=== PATIENT | male | born 1970 | race Caucasian/White ===

== ENCOUNTER → 2020-07-03 12:52 | Outpatient (CLI) | payer OTHER, SELFPAY ==
--- NOTE | 2020-07-03 13:00 | XR_ITS ---
PROCEDURE: XR ANKLE WT BEARING RT MIN 3V CLINICAL INDICATION: right ankle pain COMPARISON: No exams were available for comparison FINDINGS: The medial and lateral malleolus appear intact. The ankle mortise is normal. There is no soft tissue swelling. There is a prominent enthesophyte of the calcaneus at the insertion of the plantar tendon. There is mild pes planus IMPRESSION: No acute findings. Dictated by: Dr. Kulwant Jama MD 07/03/2020 13:21 Dr. Kulwant Jama MD in 07/03/2020 13:21
== END ==
PROVIDERS: PCP Family Medicine; Visit Provider Orthopaedic Surgery
DX: M25.571 Pain in right ankle and joints of right foot (principal)
CPT/HCPCS: 73610